=== PATIENT | male | born 1975 | race African-American/Black ===

== ENCOUNTER 2017-06-17 04:04 | Emergency (ER) | payer MEDICAID, OTHER ==
[~2017-06-17] VITALS: Ht 182.9 cm; Wt 86.2 kg
[~2017-06-17 04:04] MED LIST: CYCLOBENZAPRINE10 MG ORAL; IBUPROFEN600 MG ORAL; IBUPROFEN800 M1 PO
[2017-06-17] MEDS ORDERED: Tetanus/Diptheria/Pertussis Vaccine 0.5ml Syr IM ONE (05:00)
[2017-06-17] MEDS ORDERED: DOXYCYCLINE MO100 MG ORAL (05:00)
[2017-06-17] MEDS ORDERED: IBUPROFEN600 MG ORAL (05:00)
--- NOTE | 2017-06-17 05:00 | Emergency Room Report ---
History of Present Illness General Chief Complaint: Laceration Source: Patient Present Illness HPI Is a 41-year-old male with no past medical history. He was walking and he tripped and fell backward. Was wearing flip-flop. He fell and stepped on some broken glass. He sustained a laceration to the bottom of the heel. No loss of consciousness. It is a bit minor injury. No fever chills or no nausea no vomiting. He thinks that they may be glass in his foot. Allergies: Coded Allergies: No Known Allergies (Unverified , 08/14/14) Patient History Past Medical History: see triage record, old chart reviewed Past Surgical History: other Pertinent Family History: none Social History: Reports: alcohol use - social Immunizations: other Reviewed Nursing Documentation: PMH: Agreed, PSxH: Agreed Nursing Documentation-PM Past Medical History: No Stated History Review of Systems Eye: Denies: eye pain, blurred vision ENT: Denies: ear pain, nose congestion, throat swelling Respiratory: Denies: cough, shortness of breath Cardiovascular: Denies: chest pain, palpitations Gastrointestinal: Denies: abdominal pain, diarrhea, nausea, vomiting Musculoskeletal: Denies: back pain, joint pain Skin: Denies: rash Neurological: Denies: headache, numbness Endocrine: Denies: increased thirst, increased urine Hematologic/Lymphatic: Denies: easy bruising All Other Systems: negative except mentioned in HPI Physical Exam Vital Signs Date Time Temp Pulse Resp B/P (MAP) Pulse Ox O2 Delivery O2 Flow Rate FiO2 06/17/17 04:15 98.2 78 16 140/70 100 Room Air vitals unremarkable Sp02 EP Interpretation: reviewed, normal General Appearance: well appearing, no apparent distress, alert Head: normocephalic, atraumatic Eyes: bilateral eye PERRL, bilateral eye EOMI ENT: hearing grossly normal, normal pharynx Neck: full range of motion, supple, no meningismus Respiratory: chest non-tender, lungs clear, normal breath sounds Cardiovascular #1: regular rate, rhythm, no murmur Gastrointestinal: normal bowel sounds, non tender, no mass, no organomegaly, no bruit, non-distended Musculoskeletal: back normal, gait/station normal, normal range of motion, other - Right foot on the bottom of a hill there is a 1 cm laceration. Tender to palpation. No obvious foreign body Psychiatric: mood/affect normal Skin: warm/dry Medical Decision Making Diagnostic Impression: Primary Impression: Laceration ER Course Patient with a laceration to the heel of the foot. I clean it up and inject local anesthetic. I explored the cut. It went through the dermis but did not cut the underlying tissue. No foreign body. Nothing to be sutured. We'll put him on antibiotics since this is a high risk for infection. Last Vital Signs Date Time Temp Pulse Resp B/P (MAP) Pulse Ox O2 Delivery O2 Flow Rate FiO2 06/17/17 04:15 98.2 78 16 140/70 100 Room Air Status: improved Disposition: HOME, SELF-CARE Condition: Stable Scripts Ibuprofen* (MOTRIN*) 600 Mg Tablet 600 MG ORAL Q8H Y for For Pain, #30 TAB 0 Refills Prov: AMPARO MUÑOZ M.D. 06/17/17 Doxycycline Monohydrate* (DOXYCYCLINE MONOHYDRATE*) 100 Mg Capsule 100 MG ORAL Q12H, #14 CAP 0 Refills Prov: AMPARO MUÑOZ M.D. 06/17/17 Referrals: MISAEL ANN,REFERRING (PCP) Patient Instructions: Nonsutured Laceration Care Additional Instructions: Keep wound clean. Apply antibiotic ointment to the area. Return if symptom worsen. Followup your DrSweetie in 7 days. AMPARO MUÑOZ M.D. Jun 17, 2017 05:00
[2017-06-17 05:10] VITALS: BP 140/70
[2017-06-17 05:11] VITALS: BP 140/70
== END 2017-06-17 05:16 | disposition home or self-care (01) ==
LOC: EMR 04:47
DX: S91.311A Laceration without foreign body, right foot, initial encounter (principal); W25.XXXA Contact with sharp glass, initial encounter; Y92.89 Other specified places as the place of occurrence of the external cause; Z23 Encounter for immunization
CPT/HCPCS: 90471; 90715; 99284